=== PATIENT | male | born 1935 | race Caucasian/White ===

== ENCOUNTER 2019-10-31 11:16 | Emergency (ER) | payer MEDICARE ==
[~2019-10-31] VITALS: Ht 172.7 cm; Wt 90.9 kg
[2019-10-31 11:35] LABS: BASOPHILS # (AUTO) 0.1 X10'3 (0-0.2); BASOPHILS % (AUTO) 0.8 % (0-1); EOSINOPHILS # (AUTO) 0.2 X10'3 (0-0.9); EOSINOPHILS % (AUTO) 2.3 % (0-6); HEMATOCRIT 46.4 % (42.0-52.0); HEMOGLOBIN 15.8 g/dl (14.0-17.9); LYMPHOCYTES # (AUTO) 2.3 X10'3 (1.1-4.8); LYMPHOCYTES % (AUTO) 23.6 % (21-51); MEAN CORPUSCULAR HEMOGLOBIN 30.9 PG (27.0-31.0); MEAN CORPUSCULAR HGB CONC 34.1 g/dL (33.0-36.5); MEAN CORPUSCULAR VOLUME 90.7 FL (78-98); MEAN PLATELET VOLUME 8.3 FL (7.4-10.4); MONOCYTES % (AUTO) 10.2 % (2-12); NEUTROPHILS # (AUTO) 6.1 X10'3 (1.8-7.7); NEUTROPHILS % (AUTO) 63.1 % (42-75); PLATELET COUNT 198 X10'3 (140-440); RED BLOOD COUNT 5.12 X10'6 (4.70-6.10); RED CELL DISTRIBUTION WIDTH 13.6 % (11.5-14.5); WHITE BLOOD COUNT 9.7 X10'3 (4.5-11.0)
[2019-10-31] MEDS ORDERED: adenosine 3mg/ml 2ml vial IV ONE (11:35)
[2019-10-31 11:50] LABS: ALANINE AMINOTRANSFERASE 25 U/L (12-78); ALBUMIN 3.8 G/DL (3.4-5.0); ALBUMIN/GLOBULIN RATIO 1.2 (1.1-1.5); ALKALINE PHOSPHATASE 78 IU/L (46-116); ANION GAP 7 (8-16); ASPARTATE AMINO TRANSFERASE 22 U/L (10-37); BILIRUBIN,TOTAL 0.5 MG/DL (0.1-1.0); BLOOD UREA NITROGEN 16 MG/DL (7-18); BUN/CREATININE RATIO 18.6 (5.4-32.0); CHLORIDE 104 MMOL/L (99-107); CREATININE 0.86 MG/DL (0.60-1.10); GLUCOSE 101 MG/DL (70-104); POTASSIUM 4.3 MMOL/L (3.5-5.1); SODIUM 140 MMOL/L (135-145); eGFR 84 ML/MIN
[2019-10-31] MEDS ORDERED: METO-539 PO (12:42)
[2019-10-31 12:47] VITALS: BP 114/63
== END 2019-10-31 12:50 | disposition home or self-care (01) ==
LOC: ER 11:16
DX: I47.1 Supraventricular tachycardia (principal); Z87.442 Personal history of urinary calculi; Z79.899 Other long term (current) drug therapy
CPT/HCPCS: 36415; 71045; 80053; 83735; 84484; 85025; 93005; 96374; 99285; J0153

== ENCOUNTER 2020-01-13 05:40 | Emergency (ER) | payer MEDICARE ==
[~2020-01-13] VITALS: Ht 172.7 cm; Wt 90.9 kg
[2020-01-13 06:00] LABS: BASOPHILS # (AUTO) 0.1 X10'3 (0-0.2); BASOPHILS % (AUTO) 0.9 % (0-1); EOSINOPHILS # (AUTO) 0.3 X10'3 (0-0.9); EOSINOPHILS % (AUTO) 2.9 % (0-6); HEMATOCRIT 46.5 % (42.0-52.0); LYMPHOCYTES # (AUTO) 2.6 X10'3 (1.1-4.8); LYMPHOCYTES % (AUTO) 26.9 % (21-51); MEAN CORPUSCULAR HEMOGLOBIN 31.1 PG (27.0-31.0); MEAN CORPUSCULAR HGB CONC 34.3 g/dL (33.0-36.5); MEAN CORPUSCULAR VOLUME 90.7 FL (78-98); MEAN PLATELET VOLUME 8.3 FL (7.4-10.4); MONOCYTES # (AUTO) 0.9 X10'3 (0-0.9); MONOCYTES % (AUTO) 8.8 % (2-12); NEUTROPHILS # (AUTO) 5.9 X10'3 (1.8-7.7); NEUTROPHILS % (AUTO) 60.5 % (42-75); PLATELET COUNT 206 X10'3 (140-440); RED BLOOD COUNT 5.13 X10'6 (4.70-6.10); WHITE BLOOD COUNT 9.7 X10'3 (4.5-11.0)
[2020-01-13 06:14] LABS: ALANINE AMINOTRANSFERASE 24 U/L (12-78); ALBUMIN/GLOBULIN RATIO 1.3 (1.1-1.5); ALKALINE PHOSPHATASE 77 IU/L (46-116); ANION GAP 8 (8-16); ASPARTATE AMINO TRANSFERASE 19 U/L (10-37); BILIRUBIN,TOTAL 0.5 MG/DL (0.1-1.0); BLOOD UREA NITROGEN 20 MG/DL (7-18); BUN/CREATININE RATIO 22.2 (5.4-32.0); CALCIUM 8.7 MG/DL (8.5-10.1); CHLORIDE 107 MMOL/L (99-107); GLUCOSE 132 MG/DL (70-104); POTASSIUM 3.8 MMOL/L (3.5-5.1); SODIUM 143 MMOL/L (135-145); TOTAL CARBON DIOXIDE 28.2 MMOL/L (24-32); TOTAL PROTEIN 7.2 G/DL (6.4-8.2); eGFR 80 ML/MIN
[2020-01-13] MEDS ORDERED: metoprolol tartrate 1mg/ml inj IV ONE (06:40)
[2020-01-13] MEDS ORDERED: LEVO750T21 PO (08:51)
[2020-01-13 09:02] VITALS: BP 119/71
== END 2020-01-13 09:04 | disposition home or self-care (01) ==
LOC: ER 05:40
DX: J18.9 Pneumonia, unspecified organism (principal); R00.2 Palpitations; Z87.442 Personal history of urinary calculi; Z87.891 Personal history of nicotine dependence; Z79.2 Long term (current) use of antibiotics
CPT/HCPCS: 36415; 71045; 80053; 84484; 85025; 93005; 96374; 99285; J3490

== ENCOUNTER 2020-10-09 07:28 | Emergency (ER) | payer MEDICARE ==
[~2020-10-09] VITALS: Ht 175.3 cm; Wt 86.4 kg
[2020-10-09] MEDS ORDERED: diltiazem 5mg/ml 5ml inj. IV ONE (07:45)
[2020-10-09] MEDS ORDERED: normal saline 1000ml 1,000 ML IV ONE (07:45)
[2020-10-09] MEDS ORDERED: aspirin 81mg tab.chew PO ONE (07:45)
--- NOTE | 2020-10-09 08:00 | NUR ---
pt converted self,hr 73 sinus.tech at bedside repeating ekg.
--- NOTE | 2020-10-09 08:00 | NUR ---
IVP cardizem administered as ordered. HR 152, now NSR HR 73. BP 112/73. Dr. Bennett aware.
[2020-10-09 08:16] LABS: BASOPHILS # (AUTO) 0.1 X10'3 (0-0.2); BASOPHILS % (AUTO) 0.8 % (0-1); EOSINOPHILS # (AUTO) 0.3 X10'3 (0-0.9); EOSINOPHILS % (AUTO) 2.8 % (0-6); HEMATOCRIT 48.5 % (42.0-52.0); HEMOGLOBIN 16.4 g/dl (14.0-17.9); MEAN CORPUSCULAR HEMOGLOBIN 31.1 PG (27.0-31.0); MEAN CORPUSCULAR HGB CONC 33.9 g/dL (33.0-36.5); MEAN CORPUSCULAR VOLUME 91.8 FL (78-98); MEAN PLATELET VOLUME 8.4 FL (7.4-10.4); MONOCYTES # (AUTO) 0.9 X10'3 (0-0.9); MONOCYTES % (AUTO) 9.6 % (2-12); NEUTROPHILS # (AUTO) 6.6 X10'3 (1.8-7.7); NEUTROPHILS % (AUTO) 66.8 % (42-75); PLATELET COUNT 185 X10'3 (140-440); RED BLOOD COUNT 5.29 X10'6 (4.70-6.10); RED CELL DISTRIBUTION WIDTH 14.1 % (11.5-14.5); WHITE BLOOD COUNT 9.9 X10'3 (4.5-11.0)
[2020-10-09 08:27] LABS: ALANINE AMINOTRANSFERASE 28 U/L (12-78); ALBUMIN 3.9 G/DL (3.4-5.0); ALBUMIN/GLOBULIN RATIO 1.1 (1.1-1.5); ALKALINE PHOSPHATASE 76 IU/L (46-116); ANION GAP 6 (8-16); ASPARTATE AMINO TRANSFERASE 20 U/L (10-37); BILIRUBIN,TOTAL 0.6 MG/DL (0.1-1.0); BLOOD UREA NITROGEN 18 MG/DL (7-18); BUN/CREATININE RATIO 24.3 (5.4-32.0); CALCIUM 8.8 MG/DL (8.5-10.1); CHLORIDE 108 MMOL/L (99-107); CREATININE 0.74 MG/DL (0.60-1.10); GLUCOSE 122 MG/DL (70-104); POTASSIUM 3.8 MMOL/L (3.5-5.1); SODIUM 142 MMOL/L (135-145); TOTAL PROTEIN 7.3 G/DL (6.4-8.2); eGFR > 90 ML/MIN
[2020-10-09 08:33] LABS: MAGNESIUM 2.1 MG/DL (1.5-2.4)
--- NOTE | 2020-10-09 08:46 | NUR ---
Cat Brannon (daughter) [phone]
[2020-10-09 09:22] VITALS: BP 127/76
== END 2020-10-09 09:31 | disposition home or self-care (01) ==
LOC: ER 07:28
DX: I49.9 Cardiac arrhythmia, unspecified (principal); R00.0 Tachycardia, unspecified; R42 Dizziness and giddiness; Z87.442 Personal history of urinary calculi
CPT/HCPCS: 36415; 71045; 80053; 83735; 83880; 84484; 85025; 93005; 96361; 96374; 99285; J7030; J3490

== ENCOUNTER 2023-07-16 23:30 | Emergency (ER) | payer MEDICARE ==
[~2023-07-16] VITALS: Ht 172.7 cm; Wt 90.9 kg
[2023-07-17] MEDS ORDERED: acetaminophen 325mg tablet PO ONE ×2 (00:25→02:15)
[2023-07-17 01:34] LABS: BASOPHILS # (AUTO) 0.1 X10'3 (0-0.2); BASOPHILS % (AUTO) 1.2 % (0-1); EOSINOPHILS # (AUTO) 0.1 X10'3 (0-0.9); HEMATOCRIT 41.7 % (42.0-52.0); HEMOGLOBIN 13.8 g/dl (14.0-17.9); LYMPHOCYTES # (AUTO) 0.9 X10'3 (1.1-4.8); LYMPHOCYTES % (AUTO) 7.8 % (21-51); MEAN CORPUSCULAR HEMOGLOBIN 30.3 PG (27.0-31.0); MEAN CORPUSCULAR HGB CONC 33.2 g/dL (33.0-36.5); MEAN CORPUSCULAR VOLUME 91.4 FL (78-98); MEAN PLATELET VOLUME 8.3 FL (7.4-10.4); MONOCYTES # (AUTO) 1.4 X10'3 (0-0.9); MONOCYTES % (AUTO) 11.8 % (2-12); NEUTROPHILS # (AUTO) 9.5 X10'3 (1.8-7.7); NEUTROPHILS % (AUTO) 78.2 % (42-75); PLATELET COUNT 177 X10'3 (140-440); RED BLOOD COUNT 4.56 X10'6 (4.70-6.10); RED CELL DISTRIBUTION WIDTH 15.1 % (11.5-14.5); WHITE BLOOD COUNT 12.1 X10'3 (4.5-11.0)
[2023-07-17 01:41] VITALS: BP 114/62; PULSE 74; TEMP 100.4; O2SAT 93
[2023-07-17 01:44] VITALS: RESP 12
[2023-07-17 01:46] LABS: ALANINE AMINOTRANSFERASE 22 U/L (12-78); ALBUMIN 3.7 G/DL (3.4-5.0); ALBUMIN/GLOBULIN RATIO 1.1 (1.1-1.5); ALKALINE PHOSPHATASE 72 IU/L (46-116); ANION GAP 7 (8-16); ASPARTATE AMINO TRANSFERASE 17 U/L (10-37); BILIRUBIN,TOTAL 0.9 MG/DL (0.1-1.0); BLOOD UREA NITROGEN 19 MG/DL (7-18); CHLORIDE 103 MMOL/L (99-107); CREATININE 1.12 MG/DL (0.60-1.10); POTASSIUM 3.9 MMOL/L (3.5-5.1); SODIUM 140 MMOL/L (135-145); TOTAL CARBON DIOXIDE 29.6 MMOL/L (24-32); eCRCL 43 ML/MIN; eGFR 62 ML/MIN
[2023-07-17 01:52] LABS: PRO BRAIN NATRIURETIC PEPTIDE 1706 PG/ML (0-450)
[2023-07-17 01:54] LABS: GLUCOSE 114 MG/DL (70-104)
[2023-07-17] MEDS ORDERED: normal saline 1000ML IV soln IV ONE (02:15)
[2023-07-17] MEDS ORDERED: CefTRIAXone 2gm/D5W 50ml BAG 50 ML IV ONE (02:15)
[2023-07-17] MEDS ORDERED: pantoprazole 40 MG vial IV ONE (02:15)
[2023-07-17] MEDS ORDERED: aspirin 81mg tab.chew PO ONE (02:15)
[2023-07-17] MEDS ORDERED: albuterol 2.5 MG/3 ML nebule NEB ONE (02:20)
[2023-07-17] MEDS ORDERED: guaiFENesin/DM 10ml UD oral syrup PO ONE (02:20)
[2023-07-17] MEDS ORDERED: ondansetron/PF 4mg/2ml inj IV ONE (02:20)
[2023-07-17] MEDS ORDERED: ibuprofen tablet 400 MG TABLET PO ONE (02:25)
[2023-07-17 02:57] LABS: C-REACTIVE PROTEIN 4.26 MG/DL (0.0-0.5); PHOSPHORUS 2.9 MG/DL (2.3-4.5)
[2023-07-17] MEDS ORDERED: AZIT-164 PO (03:31)
[2023-07-17] MEDS ORDERED: azithromycin/NS 500mg/250ml 250 ML IV ONE (03:40)
[2023-07-17] MEDS ORDERED: pantoprazole 40MG/NS 100ML BAG 100 ML IV ONE (03:45)
--- NOTE | 2023-07-17 04:15 | NUR ---
Patient reluctance with care and does not want to be monitored. A/O X 4, fingers and toes pink and perfused. Pt able to talk without respiratory distress.
--- NOTE | 2023-07-17 04:18 | NUR ---
2.5 L NS IV ordered. 1 L NS administered, at request of patient.
[2023-07-17] MEDS ORDERED: azithromycin/NS 500mg/250ml 250 ML IV SCH (08:00)
== END 2023-07-17 05:14 | disposition left against medical advice (07) ==
LOC: ER 23:31
DX: J96.01 Acute respiratory failure with hypoxia (principal); J18.9 Pneumonia, unspecified organism
CPT/HCPCS: 36415; 71046; 80053; 83605; 83735; 83880; 84100; 84145; 85025; 85651; 86140; 87040; 93005; 96361; 96365; 96366; 96368; 96375; 99285; C9113; J0456; J0696; J7030